=== PATIENT | male | born 2000 | race Two or more races ===

== ENCOUNTER 2025-01-12 00:11 | Emergency (ER) | payer OTHER ==
[~2025-01-12] VITALS: Ht 175.3 cm; Wt 81.6 kg
[2025-01-12 01:08] VITALS: BP 129/77; TEMP 98.6; O2SAT 99
== END 2025-01-12 01:09 ==
LOC: ER 00:18
DX: Z04.1 Encounter for examination and observation following transport accident (principal); Z60.2 Problems related to living alone; V89.2XXA Person injured in unspecified motor-vehicle accident, traffic, initial encounter; Y93.89 Activity, other specified; Y92.415 Exit ramp or entrance ramp of street or highway as the place of occurrence of the external cause; Y99.8 Other external cause status